=== PATIENT | male | born 1960 | race Caucasian/White ===

== ENCOUNTER 2020-04-11 18:52 | Emergency (ER) | payer OTHER ==
[2020-04-11] MEDS ORDERED: Ibuprofen 600 MG Tab PO ONE (19:32)
--- NOTE | 2020-04-11 19:40 | EDM.PDOC ---
ED HPI GENERAL MEDICAL PROBLEM - General Chief Complaint: Lower Extremity Injury/Pain Stated Complaint: CAN'T PUT ANY WEIGHT ON LEFT KNEE Time Seen by Provider: 04/11/20 19:16 Source of Information: Reports: Patient History Limitations: Reports: No Limitations - History of Present Illness INITIAL COMMENTS - FREE TEXT/NARRATIVE: Mr. South is a very pleasant 59-year-old gentleman with a past medical history significant for a left knee meniscus tear, status post arthroscopic repair in early 2018, who now presents to the ED stating that his left knee has been sore for the past few days, then it gave out entirely when he got out of his car around 17:30 this evening. He did not fall, and there was no injury, however, he now has left knee pain when bearing weight on the left lower extremity. He took 2 Tylenol prior to coming to the ED. Here in the ED, the patient's initial BP is found to be mildly elevated at 155/88, with mild bradycardia of 57 bpm, otherwise, he is afebrile, saturating 96% on room air. Other than his left knee issue, the patient denies recent fever, chills, sore throat, ear pain, nasal or sinus congestion, cough, dyspnea, chest pain, palpitations, nausea, vomiting, constipation, diarrhea, abdominal pain, urinary symptoms, recent weight gain or weight loss, recent bloody bowel movements or black bowel movements, headaches, or rashes. The patient's PCP, whose name he does not recall, is in [place]. Treatments WEIGHMASTER LEAD: Reports: Other (see below) Other Treatments WEIGHMASTER LEAD: tylenol arthritis Left Knee Pain Score (Numeric/FACES): 10 - Related Data Allergies Allergy/AdvReac Type Severity Reaction Status Date / Time flu shot Allergy Severe Itching Uncoded 04/11/20 19:25 muscle relaxant Allergy Severe Anxiety Uncoded 04/11/20 19:16 Home Meds: Home Meds Diclofenac Sodium [Voltaren] 50 mg PO BID 04/11/20 [History] Iron 18 mg PO DAILY 04/11/20 [History] Omeprazole Magnesium [Prilosec Otc] 20 mg PO DAILY 04/11/20 [History] Simvastatin 40 mg PO BEDTIME 04/11/20 [History] amLODIPine [Norvasc] 5 mg PO DAILY 04/11/20 [History] hydroCHLOROthiazide [Hydrochlorothiazide] 12.5 mg PO DAILY 04/11/20 [History] Past Medical History Cardiovascular History: Reports: High Cholesterol, Hypertension Respiratory History: Reports: Sleep Apnea (nightly CPAP) Gastrointestinal History: Reports: GERD Musculoskeletal History: Reports: Arthritis Neurological History: Reports: Other (See Below) (Benign pituitary adenoma, s/p excision x 2) Endocrine/Metabolic History: Reports: Obesity/BMI 30+ - Past Surgical History Head Surgeries/Procedures: Reports: Other (See Below) (Pituitary adenoma excision x 2) HEENT Surgical History: Reports: Oral Surgery (wisdom teeth extraction), Tonsillectomy, Other (See Below) (Tongue laceration repair) Male Surgical History: Reports: Vasectomy Musculoskeletal Surgical History: Reports: Arthroscopic Knee (left, early 2018) Social & Family History - Tobacco Use Smoking Status *Q: Never Smoker - Caffeine Use Caffeine Use: Reports: Coffee, Soda, Tea - Alcohol Use Alcohol Use History: Yes Alcohol Use Frequency: Socially - Recreational Drug Use Recreational Drug Use: No - Living Situation & Occupation Living situation: Reports: , with Spouse 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 ED EXAM, GENERAL - Physical Exam Exam: See Below Exam Limited By: No Limitations General Appearance: Alert, WD/WN, No Apparent Distress Extremities: Other (No visible abnormality to the left knee, when compared to the right, such as swelling, erythema, ecchymosis, or abrasion. No effusion is appreciated. There is mild tenderness to palpation of the medial knee, with no tenderness to palpation elsewhere. Pain is induced, and there is mild laxity to straining of the medial collateral ligament. No pain or laxity to straining of the lateral collateral ligament, and both the anterior and posterior drawer signs are absent. Neurovascular status of the left lower extremity is intact.) Course - Vital Signs Last Recorded V/S: Last Vital Signs Temp 36.3 C 04/11/20 19:11 Pulse 57 L 04/11/20 19:11 Resp 20 04/11/20 19:11 BP 155/88 H 04/11/20 19:11 Pulse Ox 96 04/11/20 19:11 - Orders/Labs/Meds Orders: Active Orders 24 hr Category Date Time Status Ibuprofen [Motrin] Med 04/11/20 19:32 Once 600 mg PO ONETIME ONE DME for Discharge [COMM] Stat Oth 04/11/20 19:32 Ordered Medication Orders Ibuprofen (Motrin) 600 mg PO ONETIME ONE Stop: 04/11/20 19:33 Meds: Medications Generic Name Dose Route Start Last Admin Trade Name Musa PRN Reason Stop Dose Admin Ibuprofen 600 mg 04/11/20 19:32 Motrin PO 04/11/20 19:33 ONETIME ONE - Re-Assessments/Exams Free Text/Narrative Re-Assessment/Exam: 04/11/20 19:32 As above, the patient's left knee has been sore for the past few days, then simply gave out when he got out of his car this evening. He has pain with bearing weight. On examination, he has slight laxity and pain to stressing of the medial collateral ligament, otherwise, his knee exam is unremarkable. Because he did not actually twist or injure his knee, I do not think that a meniscus injury is what we are dealing with, rather, it appears that he has somehow strained his medial collateral ligament. Because there was no injury, x-rays will not be helpful. I have ordered a knee immobilizer and ibuprofen, and will have the patient follow-up with Dr. Langston. Departure - Departure Time of Disposition: 19:34 Disposition: Home, Self-Care 01 Condition: Good Clinical Impression: Sprain of medial collateral ligament of left knee - Discharge Information *PRESCRIPTION DRUG MONITORING PROGRAM REVIEWED*: Not Applicable *COPY OF PRESCRIPTION DRUG MONITORING REPORT IN PATIENT GERTRUDE: Not Applicable Referrals: PCP,Not In Area [Primary Care Provider] - Rajesh Langston MD [Physician] - Additional Instructions: You were seen in the emergency room after experiencing left knee discomfort for the past few days, then having your left knee simply give out on you this evening. Based on your history and physical examination, you have strained your left medial collateral ligament. You have been placed into a knee immobilizer. Apply it each morning, over your clothes, and remove it at bedtime. Be very careful when going up and down stairs while wearing the knee immobilizer. Take [id number] ibuprofen, 3 tablets (600 mg) up to every 8 hours, with food, as needed for discomfort. Follow-up with the Orthopedic Surgeon Dr. Rajesh Langston at the next available appointment, for further evaluation. If any other problems, please do not hesitate to return to the ER. Sepsis Event Note (ED) - Evaluation Sepsis Screening Result: No Definite Risk - Focused Exam Vital Signs: Vital Signs Temp Pulse Resp BP Pulse Ox 04/11/20 19:11 36.3 C 57 L 20 155/88 H 96 - My Orders Last 24 Hours: My Active Orders 04/11/20 19:32 Ibuprofen [Motrin] 600 mg PO ONETIME ONE DME for Discharge [COMM] Stat - Assessment/Plan Last 24 Hours: My Active Orders 04/11/20 19:32 Ibuprofen [Motrin] 600 mg PO ONETIME ONE DME for Discharge [COMM] Stat
== END 2020-04-11 20:05 | disposition home or self-care (01) ==
LOC: JD.ED 18:52
DX: S83.412A Sprain of medial collateral ligament of left knee, initial encounter (principal); E78.00 Pure hypercholesterolemia, unspecified; I10 Essential (primary) hypertension; K21.9 Gastro-esophageal reflux disease without esophagitis; M19.90 Unspecified osteoarthritis, unspecified site; E66.9 Obesity, unspecified; Z68.41 Body mass index [BMI] 40.0-44.9, adult; Z88.8 Allergy status to other drugs, medicaments and biological substances; X58.XXXA Exposure to other specified factors, initial encounter
CPT/HCPCS: 99283; A9270; 99282